=== PATIENT | male | born 1970 | race Caucasian/White ===

== ENCOUNTER 2019-05-25 11:48 | Emergency (ER) | payer MEDICAID ==
[~2019-05-25] VITALS: Ht 167.6 cm; Wt 71.2 kg
[2019-05-25 12:04] VITALS: BP 133/80
== END 2019-05-25 14:36 | disposition left against medical advice (07) ==
LOC: ER 11:48
DX: M54.9 Dorsalgia, unspecified (principal); Z53.21 Procedure and treatment not carried out due to patient leaving prior to being seen by health care provider